=== PATIENT | female | born 1995 | race Caucasian/White ===

== ENCOUNTER 2018-01-31 12:29 | Emergency (ER) | payer BC ==
[~2018-01-31] VITALS: Ht 162.5 cm; Wt 54.4 kg
[~2018-01-31 12:29] MED LIST: ANAPROX DS550 MG PO; AUGMENTIN 875875 MG PO; CATAFLAM50 MG PO; CLARITIN10 MG PO; DELTASONE20 M1 PO; Motrin,Rufen800 MG PO; Orphenadrine C100 MG PO; ZITHROMAX Z PA250 MG PO
[2018-01-31 12:33] VITALS: BP 128/81
[2018-01-31 13:42] LABS: BASO % 0.2 % (0.0-1.0); EOS % 0.2 % (1.0-4.0); HEMATOCRIT 45.1 % (37.0-47.0); HEMOGLOBIN 15.2 g/dl (12.0-16.0); LYMPH # 0.7 10*3/uL (1.3-4.4); LYMPH % 7.5 % (27.0-41.0); MEAN CELL VOLUME 85.7 fl (81.0-99.0); MEAN CORPUSCULAR HGB 28.9 pg (27.0-31.0); MEAN CORPUSCULAR HGB CONC 33.7 g/dl (33.0-37.0); MEAN PLATELET VOLUME 9.2 fl (9.6-12.3); MONO # 0.4 10*3/uL (0.1-1.0); MONO % 4.7 % (3.0-9.0); NEUT % 87.2 % (47.0-73.0); PLATELET COUNT AUTOMATED 304 10*3/uL (130-400); RED BLOOD COUNT 5.26 10*6/uL (4.10-5.10); RED CELL DISTRI WIDTH 12.6 % (0-14.5); WHITE BLOOD COUNT 9.2 10*3/uL (4.8-10.8)
[2018-01-31 13:58] LABS: ALKALINE PHOSPHATASE 84 U/L (45-117); BUN 8 mg/dl (7-24); CHLORIDE 104 mmol/L (98-107); CREATININE 0.62 mg/dL (0.55-1.02); LIPASE 67 U/L (73-393); POTASSIUM 3.6 mmol/L (3.5-5.1); SGOT/AST 15 IU/L (3-35); SGPT/ALT 29 U/L (12-78); SODIUM 135 mmol/L (136-145); TOTAL PROTEIN 7.6 gm/dL (6.4-8.2)
== END 2018-01-31 16:27 | disposition home or self-care (01) ==
LOC: ED 12:29
PROVIDERS: Emergency Medicine
DX: O99.611 Diseases of the digestive system complicating pregnancy, first trimester (principal); K52.9 Noninfective gastroenteritis and colitis, unspecified; O21.9 Vomiting of pregnancy, unspecified; Z3A.01 Less than 8 weeks gestation of pregnancy

== ENCOUNTER → 2018-03-21 | Outpatient (CLI) | payer BC | END | disposition home or self-care (01) | LOC: US 16:49 | DX: Z34.01 Encounter for supervision of normal first pregnancy, first trimester (principal); Z3A.12 12 weeks gestation of pregnancy ==

== ENCOUNTER → 2018-05-07 | Outpatient (CLI) | payer BC | END | disposition home or self-care (01) | LOC: US 10:55 | DX: Z34.02 Encounter for supervision of normal first pregnancy, second trimester (principal); Z3A.19 19 weeks gestation of pregnancy ==

== ENCOUNTER → 2018-08-15 | Outpatient (CLI) | payer BC | END | disposition home or self-care (01) | LOC: US 15:52 | DX: Z34.83 Encounter for supervision of other normal pregnancy, third trimester (principal); R03.0 Elevated blood-pressure reading, without diagnosis of hypertension ==

== ENCOUNTER → 2018-08-17 | Outpatient (CLI) | payer BC, OTHER ==
[~2018-08-17] MED LIST changes: +CEPHALEXIN500 M1 PO; +SEPTDS PO
== END | disposition home or self-care (01) ==
LOC: LAB 14:30
DX: R03.0 Elevated blood-pressure reading, without diagnosis of hypertension (principal)

== ENCOUNTER 2018-09-07 18:30 | Emergency (ER) | payer BC, OTHER ==
[~2018-09-07] VITALS: Ht 162.5 cm; Wt 67.1 kg
[~2018-09-07 18:30] MED LIST changes: -CEPHALEXIN500 M1 PO; -SEPTDS PO
[2018-09-07 18:31] VITALS: BP 152/84
[2018-09-07 18:58] LABS: BILIRUBIN NEGATIVE (NEGATIVE); BLOOD 1+ (NEGATIVE); CLARITY SL CLOUDY (CLEAR); COLOR YELLOW (YELLOW); GLUCOSE NEGATIVE (NEGATIVE); KETONE NEGATIVE (NEGATIVE); LEUKO ESTERASE 2+ (NEGATIVE); NITRITE NEGATIVE (NEGATIVE); PH 5.5 (5.0-9.0); SPECIFIC GRAVITY >= 1.030 (1.005-1.030); UROBILINOGEN 0.2 E.U./dl (0.2-1.0)
[2018-09-07 19:05] LABS: BACTERIA 2+; MUCOUS TRACE; WBC TNTC wbc/hpf (0-5)
[2018-09-07] MEDS ORDERED: SEPTDS PO (19:08)
== END 2018-09-07 19:11 | disposition home or self-care (01) ==
LOC: ED 18:30
PROVIDERS: Nurse Practitioner Family
DX: O86.20 Urinary tract infection following delivery, unspecified (principal); O90.89 Other complications of the puerperium, not elsewhere classified; R03.0 Elevated blood-pressure reading, without diagnosis of hypertension

== ENCOUNTER 2018-09-17 19:19 | Emergency (ER) | payer BC, OTHER ==
[~2018-09-17] VITALS: Ht 162.5 cm; Wt 65.8 kg
[2018-09-17 19:19] VITALS: BP 146/86
[~2018-09-17 19:19] MED LIST changes: +SEPTDS PO
[2018-09-17 20:02] LABS: BASO % 0.2 % (0.0-1.0); EOS # 0.1 10*3/uL (0.0-0.4); EOS % 1.2 % (1.0-4.0); HEMOGLOBIN 13.5 g/dl (12.0-16.0); LYMPH # 1.7 10*3/uL (1.3-4.4); LYMPH % 18.6 % (27.0-41.0); MEAN CELL VOLUME 88.1 fl (81.0-99.0); MEAN CORPUSCULAR HGB 29.7 pg (27.0-31.0); MEAN CORPUSCULAR HGB CONC 33.8 g/dl (33.0-37.0); MEAN PLATELET VOLUME 8.4 fl (9.6-12.3); MONO # 0.4 10*3/uL (0.1-1.0); MONO % 4.6 % (3.0-9.0); NEUT # 6.9 10*3/uL (2.3-7.9); NEUT % 75.1 % (47.0-73.0); PLATELET COUNT AUTOMATED 384 10*3/uL (130-400); RED BLOOD COUNT 4.54 10*6/uL (4.10-5.10); RED CELL DISTRI WIDTH 12.2 % (0-14.5); WHITE BLOOD COUNT 9.1 10*3/uL (4.8-10.8)
[2018-09-17 20:09] LABS: BILIRUBIN NEGATIVE (NEGATIVE); BLOOD 1+ (NEGATIVE); CLARITY SL CLOUDY (CLEAR); COLOR YELLOW (YELLOW); GLUCOSE NEGATIVE (NEGATIVE); KETONE NEGATIVE (NEGATIVE); LEUKO ESTERASE 2+ (NEGATIVE); NITRITE NEGATIVE (NEGATIVE); SPECIFIC GRAVITY <= 1.005 (1.005-1.030); UROBILINOGEN 0.2 E.U./dl (0.2-1.0)
[2018-09-17 20:19] LABS: ALBUMIN 3.3 gm/dl (3.1-4.5); ALKALINE PHOSPHATASE 120 U/L (45-117); BUN 7 mg/dl (7-24); CHLORIDE 106 mmol/L (98-107); CREATININE 0.67 mg/dL (0.55-1.02); LIPASE 80 U/L (73-393); POTASSIUM 3.7 mmol/L (3.5-5.1); SGOT/AST 16 IU/L (3-35); SGPT/ALT 28 U/L (12-78); SODIUM 142 mmol/L (136-145); TOTAL PROTEIN 7.1 gm/dL (6.4-8.2)
[2018-09-17 20:23] LABS: EPITHELIAL CELLS 25-30; WBC 21-30 wbc/hpf (0-5)
[2018-09-17 20:24] LABS: BACTERIA 2+
[2018-09-17] MEDS ORDERED: CEPHALEXIN500 M1 PO (22:07)
== END 2018-09-17 22:10 ==
LOC: ED 19:19
PROVIDERS: Nurse Practitioner Family
DX: O86.20 Urinary tract infection following delivery, unspecified (principal)

== ENCOUNTER 2021-02-26 11:47 | Emergency (ER) | payer OTHER ==
[~2021-02-26] VITALS: Ht 162.5 cm; Wt 65.8 kg
[~2021-02-26 11:47] MED LIST changes: +CEPHALEXIN500 M1 PO
[2021-02-26 11:53] VITALS: BP 143/89
[2021-02-26 12:40] LABS: BASO % 0.5 % (0.0-1.0); EOS # 0.1 10*3/uL (0.0-0.4); EOS % 1.7 % (1.0-4.0); HEMATOCRIT 44.2 % (37.0-47.0); LYMPH # 1.3 10*3/uL (1.3-4.4); LYMPH % 32.2 % (27.0-41.0); MEAN CORPUSCULAR HGB 28.5 pg (27.0-31.0); MEAN CORPUSCULAR HGB CONC 32.8 g/dl (33.0-37.0); MEAN PLATELET VOLUME 9.2 fl (9.6-12.3); MONO # 0.4 10*3/uL (0.1-1.0); MONO % 9.1 % (3.0-9.0); NEUT # 2.3 10*3/uL (2.3-7.9); NEUT % 56.3 % (47.0-73.0); PLATELET COUNT AUTOMATED 355 10*3/uL (130-400); RED BLOOD COUNT 5.08 10*6/uL (4.10-5.10); RED CELL DISTRI WIDTH 12.8 % (0-14.5); WHITE BLOOD COUNT 4.2 10*3/uL (4.8-10.8)
[2021-02-26 12:56] LABS: ALBUMIN 3.5 gm/dl (3.1-4.5); ALKALINE PHOSPHATASE 80 U/L (45-117); BUN 8 mg/dl (7-24); CHLORIDE 105 mmol/L (98-107); CREATININE 0.66 mg/dL (0.55-1.02); LIPASE 62 U/L (73-393); POTASSIUM 4.2 mmol/L (3.5-5.1); SGOT/AST 18 IU/L (3-35); SGPT/ALT 26 U/L (12-78); SODIUM 136 mmol/L (136-145)
[2021-02-26 12:57] LABS: BETA-HCG, QUANT < 1.0 mIU/mL (1-3)
[2021-02-26] MEDS ORDERED: PEPCID20 MG PO (14:30)
== END 2021-02-26 15:05 | disposition home or self-care (01) ==
LOC: ED 11:47
PROVIDERS: Emergency Medicine
DX: K29.00 Acute gastritis without bleeding (principal); Z79.2 Long term (current) use of antibiotics; Z79.899 Other long term (current) drug therapy; Z90.89 Acquired absence of other organs

== ENCOUNTER 2022-04-01 17:59 | Emergency (ER) | payer OTHER ==
[~2022-04-01] VITALS: Ht 162.5 cm; Wt 72.6 kg
[~2022-04-01 17:59] MED LIST changes: +PEPCID20 MG PO
[2022-04-01 18:10] VITALS: BP 119/81
[2022-04-01 19:44] LABS: BASO % 0.4 % (0.0-1.0); EOS # 0.1 10*3/uL (0.0-0.4); EOS % 1.2 % (1.0-4.0); HEMATOCRIT 38.8 % (37.0-47.0); LYMPH # 2.2 10*3/uL (1.3-4.4); LYMPH % 25.8 % (27.0-41.0); MEAN CELL VOLUME 80.8 fl (81.0-99.0); MEAN CORPUSCULAR HGB CONC 32.2 g/dl (33.0-37.0); MEAN PLATELET VOLUME 8.9 fl (9.6-12.3); MONO # 0.5 10*3/uL (0.1-1.0); MONO % 6.2 % (3.0-9.0); NEUT # 5.6 10*3/uL (2.3-7.9); PLATELET COUNT AUTOMATED 484 10*3/uL (130-400); RED CELL DISTRI WIDTH 14.3 % (0-14.5); WHITE BLOOD COUNT 8.5 10*3/uL (4.8-10.8)
[2022-04-01 20:02] LABS: ALKALINE PHOSPHATASE 120 U/L (45-117); BUN 14 mg/dl (7-24); CHLORIDE 106 mmol/L (98-107); CREATININE 0.65 mg/dL (0.55-1.02); POTASSIUM 3.9 mmol/L (3.5-5.1); SGOT/AST 21 IU/L (3-35); SGPT/ALT 29 U/L (12-78); SODIUM 140 mmol/L (136-145); TOTAL PROTEIN 6.9 gm/dL (6.4-8.2)
== END 2022-04-01 22:17 | disposition home or self-care (01) ==
LOC: ED 17:59
PROVIDERS: Emergency Medicine
DX: R19.7 Diarrhea, unspecified (principal); R11.0 Nausea; Z90.89 Acquired absence of other organs; Z98.890 Other specified postprocedural states

== ENCOUNTER 2022-11-11 12:57 | Emergency (ER) | payer OTHER ==
[~2022-11-11] VITALS: Ht 162.5 cm; Wt 72.6 kg
[2022-11-11 13:18] VITALS: BP 139/80
[2022-11-11 16:03] LABS: BASO % 0.1 % (0.0-1.0); EOS % 0.4 % (1.0-4.0); HEMATOCRIT 46.1 % (37.0-47.0); LYMPH % 14.1 % (27.0-41.0); MEAN CORPUSCULAR HGB 26.2 pg (27.0-31.0); MEAN CORPUSCULAR HGB CONC 31.2 g/dl (33.0-37.0); MEAN PLATELET VOLUME 9.1 fl (9.6-12.3); MONO # 0.6 10*3/uL (0.1-1.0); MONO % 8.3 % (3.0-9.0); NEUT # 5.7 10*3/uL (2.3-7.9); PLATELET COUNT AUTOMATED 402 10*3/uL (130-400); RED BLOOD COUNT 5.49 10*6/uL (4.10-5.10); WHITE BLOOD COUNT 7.4 10*3/uL (4.8-10.8)
[2022-11-11 16:17] LABS: ALKALINE PHOSPHATASE 129 U/L (46-116); BETA-HCG, QUANT < 3.0 mIU/mL (0-10); BUN 13 mg/dl (9-23); CHLORIDE 100 mmol/L (98-107); LIPASE 26 U/L (12-53); POTASSIUM 3.7 mmol/L (3.4-5.1); SGPT/ALT 21 U/L (10-49); TOTAL PROTEIN 7.5 gm/dL (6.0-8.0)
== END 2022-11-11 18:11 | disposition home or self-care (01) ==
LOC: ED 12:57
PROVIDERS: Emergency Medicine
DX: K52.9 Noninfective gastroenteritis and colitis, unspecified (principal); Z90.89 Acquired absence of other organs

== ENCOUNTER 2024-06-26 12:10 | Emergency (ER) | payer OTHER ==
[~2024-06-26] VITALS: Ht 162.5 cm; Wt 72.6 kg
[2024-06-26 12:25] VITALS: BP 145/85
== END 2024-06-26 12:56 | disposition home or self-care (01) ==
LOC: ED 12:10
DX: R07.81 Pleurodynia (principal); M54.6 Pain in thoracic spine; R51.9 Headache, unspecified; Z90.89 Acquired absence of other organs

== ENCOUNTER 2024-06-28 16:10 | Emergency (ER) | payer OTHER ==
[~2024-06-28] VITALS: Ht 162.5 cm; Wt 72.6 kg
[2024-06-28 17:05] VITALS: BP 134/88
[2024-06-28] MEDS ORDERED: IBUPROFEN 800 MG TAB PO ONE (17:35)
[2024-06-28] MEDS ORDERED: Prochlorperazine Maleate 10 MG TAB PO ONE (17:35)
[2024-06-28] MEDS ORDERED: COMPAZINE10 M1 PO (18:18)
[2024-06-28] MEDS ORDERED: IBU800 M2 PO (18:18)
== END 2024-06-28 18:33 | disposition home or self-care (01) ==
LOC: ED 16:10
DX: S16.1XXA Strain of muscle, fascia and tendon at neck level, initial encounter (principal); S09.8XXA Other specified injuries of head, initial encounter; Z90.89 Acquired absence of other organs; Z98.890 Other specified postprocedural states; V49.9XXA Car occupant (driver) (passenger) injured in unspecified traffic accident, initial encounter; Y93.89 Activity, other specified; Y92.410 Unspecified street and highway as the place of occurrence of the external cause; Y99.8 Other external cause status